=== PATIENT | female | born 2000 | race Caucasian/White ===

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

== ENCOUNTER 2019-02-12 15:15 | Outpatient (CLI) | payer OTHER | END 2019-02-12 23:59 | disposition home or self-care (01) | LOC: LAB.R 15:15 | PROVIDERS: ATTEND Physician Assistant | DX: Z20.2 Contact with and (suspected) exposure to infections with a predominantly sexual mode of transmission (principal) | CPT/HCPCS: 87491; 87591 ==

== ENCOUNTER 2019-05-26 17:35 | Outpatient (CLI) | payer OTHER | END 2019-05-26 17:36 | disposition home or self-care (01) | LOC: LAB 17:35 | PROVIDERS: ATTEND Physician Assistant | DX: Z33.1 Pregnant state, incidental (principal) | CPT/HCPCS: 36415; 84702 ==

== ENCOUNTER 2019-05-28 14:19 | Outpatient (CLI) | payer OTHER ==
--- NOTE | 2019-05-29 11:31 | Ultrasound Report ---
Reason: , ABDOMINAL CRAMPS Procedure Date: 05/28/2019 Accession Number: [id number] / [id number] Procedure: US - OB First Trimester CPT Code: FULL RESULT: EXAM: FIRST TRIMESTER OBSTETRIC ULTRASOUND (Less than 11 weeks) EXAM DATE: 05/28/2019 04:02 PM. CLINICAL HISTORY: , abdominal cramps. LMP: 04/02/2019. COMPARISONS: None. TECHNIQUE: Transabdominal and transvaginal ultrasound examination with static image documentation. CLINICAL DATES: EGA 8 weeks 0 days with JACOBO 01/07/2020 based on LMP. ASSESSMENT: Gestational Sac: Single intrauterine. Embryo: CRL (crown-rump length) 5.7 mm = 6 weeks 3 days with an JACOBO of 01/18/2020. Cardiac activity: 124 beats per minute. Yolk sac: 4.5 mm. Amniotic fluid: Not accurately assessed at this gestational age. Early placenta: Not visible at this gestational age. Other: Small anterior perigestational collection measuring 1.2 x 0.6 x 0.7 cm is noted. This is most compatible with a small perigestational hemorrhage. MATERNAL STRUCTURES: Uterus: Anteverted. Unremarkable. Cervix: Closed. Right Ovary/Adnexa: The ovary measures 3.7 x 2.1 x 2.6 cm, volume 10.7 cc. Unremarkable. Left Ovary/Adnexa: The ovary measures 2.8 x 1.3 x 1.7 cm, volume 3.3 cc. Unremarkable. Free Fluid: None. Other: None. IMPRESSION: 1. Single viable intrauterine at EGA 6 weeks 3 days with JACOBO 01/18/2020 based on crown-rump length, which is discordant with clinical dates. 2. Assigned dating is JACOBO 01/18/2020 based on current ultrasound. 3. Small perigestational hemorrhage as above. 4. Both ovaries and adnexa are normal. RADIA
== END 2019-05-28 14:20 | disposition home or self-care (01) ==
LOC: DI 14:19
PROVIDERS: ATTEND Physician Assistant
DX: O99.89 Other specified diseases and conditions complicating pregnancy, childbirth and the puerperium (principal); R10.9 Unspecified abdominal pain; O46.91 Antepartum hemorrhage, unspecified, first trimester; Z3A.01 Less than 8 weeks gestation of pregnancy
CPT/HCPCS: 76801; 76817

== ENCOUNTER 2019-06-15 13:51 | Outpatient (CLI) | payer OTHER ==
[2019-06-15 15:08] LABS: MUDS CUTOFF CONCENTRATIONS CUTOFF CONC BELOW:
[2019-06-15 15:13] LABS: BILIRUBIN,URINE NEGATIVE (NEGATIVE); GLUCOSE, URINE (UA) NEGATIVE (NEGATIVE); KETONES,URINE (UA) NEGATIVE (NEGATIVE); LEUKOCYTE ESTERASE, URINE NEGATIVE (NEGATIVE); NITRITE,URINE NEGATIVE (NEGATIVE); OCCULT BLOOD,URINE NEGATIVE (NEGATIVE); PROTEIN,URINE NEGATIVE (NEGATIVE); UROBILINOGEN,URINE 0.2 (NORMAL) E.U./dL (NORMAL)
[2019-06-15 15:20] LABS: CLARITY,URINE CLEAR (CLEAR)
[2019-06-15 15:30] LABS: AMPHETAMINE SCREEN,URINE NEGATIVE (NEGATIVE); BENZODIAZEPINES SCREEN, URINE NEGATIVE (NEGATIVE); COCAINE SCREEN URINE NEGATIVE (NEGATIVE); METHADONE SCREEN, URINE NEGATIVE (NEGATIVE); METHAMPHETAMINES SCREEN, URINE NEGATIVE (NEGATIVE); OPIATE SCREEN, URINE NEGATIVE (NEGATIVE); OXYCODONE SCREEN, URINE NEGATIVE (NEGATIVE); PROPOXYPHENE SCREEN, URINE NEGATIVE (NEGATIVE); TRICYCLIC ANTIDEPRESSANT,URINE NEGATIVE (NEGATIVE)
[2019-06-15 15:45] LABS: RBC,URINE None Seen /HPF (0-5)
[2019-06-15 15:46] LABS: BACTERIA,URINE None Seen /HPF (None Seen); SQUAMOUS EPITHELIAL CELL,UR FEW Squamous (<= Few)
== END 2019-06-15 23:59 | disposition home or self-care (01) ==
LOC: LAB.R 13:51
PROVIDERS: ATTEND Nurse Practitioner Obstetrics & Gynecology
DX: Z36.89 Encounter for other specified antenatal screening (principal)
CPT/HCPCS: 80306; 81001; 87086

== ENCOUNTER 2019-06-15 14:01 | Outpatient (CLI) | payer OTHER ==
[2019-06-15 14:41] LABS: BASOPHILS # (AUTO) 0.1 10^3/uL (0.0-0.1); BASOPHILS % (AUTO) 0.3 %; EOSINOPHILS # (AUTO) 0.1 10^3/uL (0.0-0.7); EOSINOPHILS % (AUTO) 0.4 %; HGB - HEMOGLOBIN 11.2 g/dL (12.0-16.0); LYMPHOCYTES # (AUTO) 1.9 10^3/uL (1.5-3.5); LYMPHOCYTES % (AUTO) 12.8 %; MEAN CORPUSCULAR HEMOGLOBIN 21.8 pg (27.0-31.0); MEAN CORPUSCULAR VOLUME 68.1 fL (81.0-99.0); MONOCYTES # (AUTO) 0.8 10^3/uL (0.0-1.0); MONOCYTES % (AUTO) 5.5 %; NEUTROPHILS # (AUTO) 11.9 10^3/uL (1.5-6.6); NEUTROPHILS % (AUTO) 80.5 %; PLT - PLATELET COUNT 333 10^3/uL (130-450); RED BLOOD COUNT 5.14 10^6/uL (4.20-5.40); RED CELL DISTRIBUTION WIDTH 18.3 % (12.0-15.0); WHITE BLOOD COUNT 14.8 x10^3/uL (4.8-10.8)
[2019-06-15 15:33] LABS: THYROID STIMULATING HORMONE 5.9 uIU/mL (0.34-5.60)
[2019-06-16 11:26] LABS: HEPATITIS B SURFACE ANTIGEN NON-REACTIVE (NON-REACTIVE)
[2019-06-16 13:16] LABS: HIV AG/AB 4TH GEN NON-REACTIVE (NON-REACTIVE)
[2019-06-16 13:42] LABS: HEPATITIS C ANTIBODY NON-REACTIVE (NON-REACTIVE)
== END 2019-06-15 14:02 | disposition home or self-care (01) ==
LOC: LAB 14:01
PROVIDERS: ATTEND Nurse Practitioner Obstetrics & Gynecology
DX: Z36.89 Encounter for other specified antenatal screening (principal); E03.9 Hypothyroidism, unspecified
CPT/HCPCS: 36415; 80306; 81001; 81599; 84443; 85025; 86592; 86762; 86803; 86850; 86900; 86901; 87340; 87389

== ENCOUNTER 2019-07-23 13:51 | Outpatient (CLI) | payer OTHER ==
[2019-07-23 14:37] LABS: T4 (THYROXINE) 8.89 ug/dL (6.09-12.23)
[2019-07-23 14:41] LABS: THYROID STIMULATING HORMONE 5.43 uIU/mL (0.34-5.60)
== END 2019-07-23 13:52 | disposition home or self-care (01) ==
LOC: LAB 13:51
PROVIDERS: ATTEND Obstetrics & Gynecology
DX: O99.280 Endocrine, nutritional and metabolic diseases complicating pregnancy, unspecified trimester (principal)
CPT/HCPCS: 36415; 84436; 84443

== ENCOUNTER 2019-08-03 09:19 | Emergency (ER) | payer OTHER ==
--- NOTE | 2019-08-03 10:12 | ED Physician Documentation ---
History of Present Illness - Stated complaint Stated Complaint: ABD PX/ 16 WKS - Chief complaint Chief Complaint: Abd Pain - Additonal information Additional information: This is a 19 year old female who is currently 16 weeks who presents with abdominal discomfort extending across lower abdomen since yesterday. The pain is crampy and somewhat intermittent and migratory. She denies bleeding, vaginal discharge, concern for sexual transmitted infection. No fever or vomiting. She had mild nausea. She Had a confirmed intrauterine on 2 separate OB ultrasounds. She reportedly had a possible subchorionic hemorrhage seen on the first US. Review of Systems Constitutional: denies: Fever Cardiac: denies: Chest pain / pressure Respiratory: denies: Dyspnea GI: reports: Abdominal Pain, Nausea : denies: Dysuria Skin: denies: Rash PD PAST MEDICAL HISTORY - Past Medical History Endocrine/Autoimmune: HyPOthyroidism - Past Surgical History Past Surgical History: No - Present Medications Home Medications: Ambulatory Orders Medication Instructions Recorded Confirmed Ibuprofen 11/17/18 Metoclopramide [Reglan] 10 mg PO Q6H PRN #20 tablet 08/04/19 - Allergies Allergies/Adverse Reactions: Allergies Allergy/AdvReac Type Severity Reaction Status Date / Time No Known Drug Allergies Allergy Verified 08/04/19 16:42 - Social History Does the pt smoke?: No Smoking Status: Never smoker Does the pt drink ETOH?: No Does the pt have substance abuse?: No - Immunizations Immunizations are current?: Yes - POLST Patient has POLST: No PD ED PE NORMAL - Vitals Vital signs reviewed: Yes - General General: Alert and oriented X 3, No acute distress - HEENT HEENT: PERRL - Neck Neck: Supple, no meningeal sign - Cardiac Cardiac: RRR, No murmur - Respiratory Respiratory: Clear bilaterally - Abdomen Abdomen: Other (Soft, very mild suprapubic tenderness, no RLQ or RUQ focal tenderness. No guarding.) - Derm Derm: Warm and dry - Extremities Extremities: No deformity - Neuro Neuro: Alert and oriented X 3 - Psych Psych: Normal mood, Normal affect Results - Vitals Vitals: Oxygen O2 Source Room air - Labs Labs: Laboratory Tests 08/03/19 08/03/19 08/03/19 10:45 10:50 10:50 WBC 11.6 H RBC 4.61 Hgb 9.9 L Hct 32.0 L MCV 69.4 L MCH 21.5 L MCHC 30.9 L RDW 17.5 H Plt Count 286 MPV 11.0 H Neut # (Auto) 9.5 H Lymph # (Auto) 1.4 L [place] # (Auto) 0.7 Eos # (Auto) 0.1 Baso # (Auto) 0.0 Absolute Nucleated RBC 0.00 Nucleated RBC % 0.0 Sodium 137 Potassium 3.5 Chloride 106 Carbon Dioxide 22 Anion Gap 9.0 BUN 5 L Creatinine 0.7 Estimated GFR (MDRD) 107 Glucose 104 H Calcium 9.0 Total Bilirubin 0.2 AST 14 ALT 10 Alkaline Phosphatase 61 Total Protein 6.8 Albumin 3.5 Globulin 3.3 Albumin/Globulin Ratio 1.1 Lipase 34 Urine Color YELLOW Urine Clarity CLEAR Urine pH 7.0 Ur Specific [place] 1.015 Urine Protein NEGATIVE Urine Glucose (UA) NEGATIVE Urine Ketones NEGATIVE Urine Occult Blood NEGATIVE Urine Nitrite NEGATIVE Urine Bilirubin NEGATIVE Urine Urobilinogen 0.2 (NORMAL) Ur Leukocyte Esterase NEGATIVE Ur Microscopic Review NOT INDICATED Urine Culture Comments NOT INDICATED - Rads (name of study) POC bedside US Radiology: Other ( movement present, 1 IUP present, HR 142) PD MEDICAL DECISION MAKING - ED course Complexity details: considered differential (UTI, threatened miscarraige, appendicitis, biliary colic, STI) ED course: Pt has a benign abdominal exam. Labs show no signs of UTI, slight leukocytosis w hich is non-specific, particularly in . Patient does have an anemia which is near her baseline. Bedside US shows a viable IUP. On repeat examination patient continues to have a benign examination without focal RLQ or RUQ tenderness. She has no vaginal bleeding or symptoms to suggest STI, or miscarriage. I discussed that I do not see an obvious cause of her cramping, but she needs to follow up very closely with her OB and return to the ED for a recheck in 24 hours if she has continued pain or particularly if she had RLQ pain or vomiting, as early appendicitis is possible. I also discussed symptoms that would necessitate immediate return to the ED. Patient agrees and was discharged home. Departure - Departure Disposition: Home, Self Care Clinical Impression: Abdominal pain Qualifiers: Abdominal location: generalized Qualified Code(s): R10.84 - Generalized abdominal pain Condition: Good Instructions: ED Abdominal Pain Unkn Cause Follow-Up: Rosalie Sharp PA [Primary Care Provider] - Within 1 week Comments: You were seen today for abdominal pain. You have an anemia, please follow-up with your OB and your primary care provider on this. Your urine did not show signs of an infection. 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 If you develop worsening abdominal pain, pain that localizes to the right lower quadrant, vomiting, fever, or any other concerning symptoms return to the emergency department. Discharge Date/Time: 08/03/19 11:59
[2019-08-03 10:57] LABS: BASOPHILS % (AUTO) 0.3 %; EOSINOPHILS # (AUTO) 0.1 10^3/uL (0.0-0.7); EOSINOPHILS % (AUTO) 0.4 %; HGB - HEMOGLOBIN 9.9 g/dL (12.0-16.0); LYMPHOCYTES # (AUTO) 1.4 10^3/uL (1.5-3.5); LYMPHOCYTES % (AUTO) 12.1 %; MEAN CORPUSCULAR HEMOGLOBIN 21.5 pg (27.0-31.0); MEAN CORPUSCULAR HGB CONC 30.9 g/dL (32.0-36.0); MEAN CORPUSCULAR VOLUME 69.4 fL (81.0-99.0); MONOCYTES # (AUTO) 0.7 10^3/uL (0.0-1.0); MONOCYTES % (AUTO) 5.7 %; NEUTROPHILS # (AUTO) 9.5 10^3/uL (1.5-6.6); NEUTROPHILS % (AUTO) 81.2 %; PLT - PLATELET COUNT 286 10^3/uL (130-450); RED BLOOD COUNT 4.61 10^6/uL (4.20-5.40); RED CELL DISTRIBUTION WIDTH 17.5 % (12.0-15.0); WHITE BLOOD COUNT 11.6 x10^3/uL (4.8-10.8)
[2019-08-03 10:58] LABS: BILIRUBIN,URINE NEGATIVE (NEGATIVE); CLARITY,URINE CLEAR (CLEAR); GLUCOSE, URINE (UA) NEGATIVE (NEGATIVE); KETONES,URINE (UA) NEGATIVE (NEGATIVE); LEUKOCYTE ESTERASE, URINE NEGATIVE (NEGATIVE); NITRITE,URINE NEGATIVE (NEGATIVE); OCCULT BLOOD,URINE NEGATIVE (NEGATIVE); PROTEIN,URINE NEGATIVE (NEGATIVE); UROBILINOGEN,URINE 0.2 (NORMAL) E.U./dL (NORMAL)
[2019-08-03 11:10] VITALS: BP 124/74
[2019-08-03 11:13] LABS: ALBUMIN 3.5 g/dL (3.2-5.5); ALBUMIN/GLOBULIN RATIO 1.1 (1.0-2.2); BILIRUBIN,TOTAL 0.2 mg/dL (0.2-1.0); CREATININE 0.7 mg/dL (0.4-1.0); TOTAL PROTEIN 6.8 g/dL (6.7-8.2)
== END 2019-08-03 11:59 | disposition home or self-care (01) ==
LOC: ED 09:19
DX: O99.89 Other specified diseases and conditions complicating pregnancy, childbirth and the puerperium (principal); R10.84 Generalized abdominal pain; O99.012 Anemia complicating pregnancy, second trimester; D64.9 Anemia, unspecified; Z3A.16 16 weeks gestation of pregnancy
CPT/HCPCS: 36415; 80053; 81001; 81003; 83690; 85025; 87086; 99282; 99283

== ENCOUNTER 2019-08-04 16:35 | Emergency (ER) | payer OTHER, MEDICAID ==
[2019-08-04] MEDS ORDERED: MAG HYDROX/AL HYDROX/SIMETH 30 ML UDC PO STA (17:07)
[2019-08-04] MEDS ORDERED: SODIUM CHLORIDE 0.9% 1,000 ML IV ONE ×2 (17:07→18:46)
[2019-08-04] MEDS ORDERED: METOCLOPRAMIDE 10 MG/2 ML VIAL IVP STA (17:07)
[2019-08-04] MEDS ORDERED: FAMOTIDINE 20 MG/2 ML VIAL IVP STA (17:07)
[2019-08-04] MEDS ORDERED: LIDOCAINE VISCOUS 2% 15 ML UDC MM STA (17:07)
--- NOTE | 2019-08-04 17:10 | ED Physician Documentation ---
PD HPI ABD PAIN - Stated complaint Stated Complaint: 16 WKS/VOMITING - Chief complaint Chief Complaint: Abd Pain - History obtained from History obtained from: Patient - History of Present Illness Timing - onset: Yesterday (This is a G1 at 16 weeks gestation who presents with abdominal pain and vomiting. Yesterday her abdominal pain was low down but today the lower pain is gone and she has more epigastric pain. She was seen yesterday and work-up was negative. Today she has more nausea and vomiting and she is vomited about several times. There is no associated diarrhea. Last bowel movement was yesterday. No cramping or bleeding or fluid loss.) Review of Systems Constitutional: denies: Fever, Chills Respiratory: denies: Dyspnea, Cough GI: reports: Abdominal Pain, Nausea, Vomiting. denies: Constipation, Diarrhea Skin: denies: Rash, Lesions PD PAST MEDICAL HISTORY - Past Medical History Past Medical History: No Endocrine/Autoimmune: HyPOthyroidism - Past Surgical History Past Surgical History: No - Present Medications Home Medications: Ambulatory Orders Medication Instructions Recorded Confirmed Ibuprofen 11/17/18 Metoclopramide [Reglan] 10 mg PO Q6H PRN #20 tablet 08/04/19 - Allergies Allergies/Adverse Reactions: Allergies Allergy/AdvReac Type Severity Reaction Status Date / Time No Known Drug Allergies Allergy Verified 08/04/19 16:42 - Social History Does the pt smoke?: No Smoking Status: Never smoker Does the pt drink ETOH?: No Does the pt have substance abuse?: No - Immunizations Immunizations are current?: Yes - POLST Patient has POLST: No PD ED PE NORMAL - Vitals Vital signs reviewed: Yes - General General: Alert and oriented X 3, No acute distress - Abdomen Abdomen: Normal bowel sounds, Soft, Other (Gravid, minimal epigastric tenderness, no lower abdominal tenderness. Bedside ultrasound shows single live intrauterine with a heart rate of 140.) - Back Back: No CVA TTP, No spinal TTP - Neuro Neuro: Alert and oriented X 3, Normal speech Results - Vitals Vitals: Vital Signs - 24 hr 08/04/19 08/04/19 16:40 21:39 Temperature 37.2 C Heart Rate 84 82 Respiratory 15 16 Rate Blood Pressure 134/75 H 124/82 H O2 Saturation 100 99 Oxygen O2 Source Room air - Labs Labs: Laboratory Tests 08/04/19 08/04/19 08/04/19 17:10 17:15 17:15 WBC 16.8 H RBC 4.78 Hgb 10.2 L Hct 32.6 L MCV 68.2 L MCH 21.3 L MCHC 31.3 L RDW 17.5 H Plt Count 281 MPV 10.8 Neut # (Auto) 14.7 H Lymph # (Auto) 1.5 [place] # (Auto) 0.5 Eos # (Auto) 0.0 Baso # (Auto) 0.0 Absolute Nucleated RBC 0.00 Nucleated RBC % 0.0 Sodium 138 Potassium 3.6 Chloride 109 Carbon Dioxide 21 Anion Gap 8.0 BUN 7 Creatinine 0.5 Estimated GFR (MDRD) 157 Glucose 133 H Calcium 9.2 Total Bilirubin 0.4 AST 18 ALT 11 Alkaline Phosphatase 66 Total Protein 7.5 Albumin 3.6 Globulin 3.9 Albumin/Globulin Ratio 0.9 L Lipase 35 Urine Color YELLOW Urine Clarity CLEAR Urine pH 7.0 Ur Specific [place] 1.015 Urine Protein NEGATIVE Urine Glucose (UA) NEGATIVE Urine Ketones 15 H Urine Occult Blood NEGATIVE Urine Nitrite NEGATIVE Urine Bilirubin NEGATIVE Urine Urobilinogen 0.2 (NORMAL) Ur Leukocyte Esterase NEGATIVE Ur Microscopic Review NOT INDICATED Urine Culture Comments NOT INDICATED - Rads (name of study) abd sono Radiology: EMP read contemporaneously (appenidx not visualized) Ct A/P Radiology: EMP read contemporaneously (no sign of appendix) PD MEDICAL DECISION MAKING - ED course ED course: 19-year-old G1 at 16 weeks presents with upper abdominal pain and vomiting. She felt much better after nausea medicines, IV fluid, and a GI cocktail. On recheck though she was more tender in the right lower quadrant. We will see if we can see her appendix on ultrasound. Her ultrasound was nondiagnostic. Subsequent to that I discussed with her and the fianc the potential options, which were as I saw them: 1 admission to the surgeon for serial exams 2 CT 3 transfer for MRI 4 antibiotics and observation for MRI tomorrow. We discussed the risk of potential CT radiation and reviewed ACOG guidelines together. After discussion they opted for the CT. CT was negative for appendicitis although the appendix was not definitely seen, however this is much more reassuring than a negative ultrasound and she was discharged with close follow-up and still appendicitis precautions. Departure - Departure Disposition: 01 Home, Self Care Clinical Impression: Vomiting Qualifiers: Vomiting type: unspecified Vomiting Intractability: non-intractable Nausea presence: with nausea Qualified Code(s): R11.2 - Nausea with vomiting, unspecified Abdominal pain Qualifiers: Abdominal location: generalized Qualified Code(s): R10.84 - Generalized abdominal pain Condition: Good Record reviewed to determine appropriate education?: Yes Instructions: ED Abdominal Pain Unkn Cause Prescriptions: Metoclopramide [Reglan] 10 mg PO Q6H PRN #20 tablet PRN Reason: nausea or headache Comments: Return for new worsening symptoms or if not better in 12 to 24 hours, anytime if you run a fever. Follow-up with your OB, next available appointment. Discharge Date/Time: 08/04/19 21:43
[2019-08-04 17:26] LABS: BASOPHILS % (AUTO) 0.2 %; EOSINOPHILS % (AUTO) 0.2 %; HGB - HEMOGLOBIN 10.2 g/dL (12.0-16.0); LYMPHOCYTES # (AUTO) 1.5 10^3/uL (1.5-3.5); MEAN CORPUSCULAR HEMOGLOBIN 21.3 pg (27.0-31.0); MEAN CORPUSCULAR HGB CONC 31.3 g/dL (32.0-36.0); MEAN CORPUSCULAR VOLUME 68.2 fL (81.0-99.0); MEAN PLATELET VOLUME 10.8 fL (7.9-10.8); MONOCYTES # (AUTO) 0.5 10^3/uL (0.0-1.0); MONOCYTES % (AUTO) 2.8 %; NEUTROPHILS # (AUTO) 14.7 10^3/uL (1.5-6.6); NEUTROPHILS % (AUTO) 87.3 %; PLT - PLATELET COUNT 281 10^3/uL (130-450); RED BLOOD COUNT 4.78 10^6/uL (4.20-5.40); RED CELL DISTRIBUTION WIDTH 17.5 % (12.0-15.0); WHITE BLOOD COUNT 16.8 x10^3/uL (4.8-10.8)
[2019-08-04 17:36] LABS: ALBUMIN 3.6 g/dL (3.2-5.5); ALBUMIN/GLOBULIN RATIO 0.9 (1.0-2.2); BILIRUBIN,TOTAL 0.4 mg/dL (0.2-1.0); CALCIUM 9.2 mg/dL (8.5-10.3); CREATININE 0.5 mg/dL (0.4-1.0); TOTAL PROTEIN 7.5 g/dL (6.7-8.2)
[2019-08-04 17:46] LABS: BILIRUBIN,URINE NEGATIVE (NEGATIVE); GLUCOSE, URINE (UA) NEGATIVE (NEGATIVE); KETONES,URINE (UA) 15 mg/dL (NEGATIVE); LEUKOCYTE ESTERASE, URINE NEGATIVE (NEGATIVE); NITRITE,URINE NEGATIVE (NEGATIVE); OCCULT BLOOD,URINE NEGATIVE (NEGATIVE); PROTEIN,URINE NEGATIVE (NEGATIVE); UROBILINOGEN,URINE 0.2 (NORMAL) E.U./dL (NORMAL)
[2019-08-04 17:48] LABS: CLARITY,URINE CLEAR (CLEAR)
--- NOTE | 2019-08-04 20:18 | Ultrasound Report ---
Reason: RLQ pain in , try to find append Procedure Date: 08/04/2019 Accession Number: [id number] / [id number] Procedure: US - Abdomen Limited CPT Code: FULL RESULT: EXAM: ABDOMEN ULTRASOUND LIMITED EXAM DATE: 08/04/2019 07:52 PM. CLINICAL HISTORY: Right lower quadrant pain in , try to find appendix. COMPARISON: None. TECHNIQUE: Real-time scanning was performed with static images obtained. FINDINGS: The appendix is not visualized. No right lower quadrant fluid collections seen. There is no lymphadenopathy. No fixed dilated bowel loops. Right ovary also not visualized. IMPRESSION: Nonvisualization of appendix. RADIA
[2019-08-04] MEDS ORDERED: IOVERSOL 320 100 ML VIAL IVP ONE ×2 (20:21→20:46)
--- NOTE | 2019-08-04 21:20 | CT Report ---
Reason: IV only, RLQ pain in , Procedure Date: 08/04/2019 Accession Number: [id number] / [id number] Procedure: CT - Abdomen/Pelvis W CPT Code: FULL RESULT: EXAM: CT ABDOMEN AND PELVIS EXAM DATE: 08/04/2019 08:43 PM. CLINICAL HISTORY: IV only, RLQ pain in . COMPARISONS: None. TECHNIQUE: Routine helical CT imaging was performed through the abdomen and pelvis. IV contrast: OPTI 320 90ML. Enteric contrast: No. Reconstructions: Coronal and sagittal. In accordance with CT protocol optimization, one or more of the following dose reduction techniques were utilized for this exam: automated exposure control, adjustment of mA and/or KV based on patient size, or use of iterative reconstructive technique. FINDINGS: Lung Bases: Unremarkable. Liver: Normal. No masses. Gallbladder/Bile Ducts: Unremarkable. Spleen: Normal. Pancreas: Normal. Adrenal Glands: Normal. Kidneys: Normal. No masses or hydronephrosis. Peritoneal Cavity/Bowel: Normal. No free fluid, free air or adenopathy. No masses or acute inflammatory process. Appendix is not definitively visualized in right lower quadrant, likely compressed due to gravid uterus. However there is no inflammation in the right lower quadrant. No free fluid. No acute abdominal pathology. Pelvic Organs: Normal. The bladder and visualized pelvic organs are within normal limits. Vasculature: No aneurysms or other significant abnormality. Bones: No significant abnormality. Other: Gravid uterus seen with transversely oriented fetus. IMPRESSION: Appendix is not definitively visualized in right lower quadrant, likely compressed due to gravid uterus. However no inflammation in the right lower quadrant. No free fluid. No acute abdominal pathology. RADIA
[2019-08-04] MEDS ORDERED: ONDANSETRON ODT 4 MG Prepack 2 TL STA (21:24)
[2019-08-04 21:40] VITALS: BP 124/82
== END 2019-08-04 21:43 | disposition home or self-care (01) ==
LOC: ED 16:35
DX: O21.0 Mild hyperemesis gravidarum (principal); O99.89 Other specified diseases and conditions complicating pregnancy, childbirth and the puerperium; R10.84 Generalized abdominal pain; Z3A.16 16 weeks gestation of pregnancy
CPT/HCPCS: 36415; 74177; 76705; 80053; 81003; 83690; 85025; 96361; 96374; 99283; 99284; A9270; J2765; Q9967; 81001; 87086

== ENCOUNTER 2019-08-09 16:19 | Emergency (ER) | payer MEDICAID ==
[2019-08-09] MEDS ORDERED: METOCLOPRAMIDE 10 MG/2 ML VIAL IVP STA (17:35)
--- NOTE | 2019-08-09 17:36 | ED Physician Documentation ---
PD HPI ABD PAIN - Stated complaint Stated Complaint: VOMITING/16 WEEKS - Chief complaint Chief Complaint: Abd Pain - History obtained from History obtained from: Patient (G1 at 17 weeks. I saw her last week for some belly pain. That is all better and she was doing well in the interim but today started having vomiting. No urinary complaints. No sick contacts. No recent travel.) Review of Systems Ten Systems: 10 systems reviewed and negative Constitutional: denies: Fever, Chills Cardiac: reports: Reviewed and negative Respiratory: reports: Reviewed and negative PD PAST MEDICAL HISTORY - Past Medical History Endocrine/Autoimmune: HyPOthyroidism - Past Surgical History Past Surgical History: No - Present Medications Home Medications: Ambulatory Orders Medication Instructions Recorded Confirmed Ibuprofen 11/17/18 Metoclopramide [Reglan] 10 mg PO Q6H PRN #20 tablet 08/04/19 - Allergies Allergies/Adverse Reactions: Allergies Allergy/AdvReac Type Severity Reaction Status Date / Time No Known Drug Allergies Allergy Verified 08/09/19 16:29 - Social History Does the pt smoke?: No Smoking Status: Never smoker Does the pt drink ETOH?: No Does the pt have substance abuse?: No - Immunizations Immunizations are current?: Yes - POLST Patient has POLST: No PD ED PE NORMAL - Vitals Vital signs reviewed: Yes - General General: Alert and oriented X 3, No acute distress - Cardiac Cardiac: RRR, No murmur - Respiratory Respiratory: No respiratory distress, Clear bilaterally - Abdomen Abdomen: Soft, Non tender, Other (Bedside ultrasound demonstrates single live intrauterine with a heart rate of 160.) - Back Back: No CVA TTP - Derm Derm: Normal color, Warm and dry - Extremities Extremities: No edema, No calf tenderness / cord - Neuro Neuro: Alert and oriented X 3, Normal speech Results - Vitals Vitals: Vital Signs - 24 hr 08/09/19 08/09/19 16:27 18:48 Temperature 37.1 C Heart Rate 84 72 Respiratory 20 16 Rate Blood Pressure 126/71 120/48 L O2 Saturation 100 99 Oxygen O2 Source Room air - Labs Labs: Laboratory Tests 08/09/19 08/09/19 08/09/19 17:55 17:55 17:55 WBC 22.0 H RBC 5.40 Hgb 11.8 L Hct 37.5 MCV 69.4 L MCH 21.9 L MCHC 31.5 L RDW 17.4 H Plt Count 315 MPV 10.7 Manual Slide Review Indicated Sodium 139 Potassium 4.1 Chloride 104 Carbon Dioxide 21 Anion Gap 14.0 H BUN 7 Creatinine 0.6 Estimated GFR (MDRD) 127 Glucose 94 Calcium 9.4 Total Bilirubin 0.5 AST 19 ALT 17 Alkaline Phosphatase 81 Total Protein 8.2 Albumin 4.2 Globulin 4.0 Albumin/Globulin Ratio 1.1 Lipase 46 Urine Color YELLOW Urine Clarity CLEAR Urine pH 5.0 Ur Specific [place] >=1.030 H Urine Protein TRACE Urine Glucose (UA) NEGATIVE Urine Ketones 15 H Urine Occult Blood NEGATIVE Urine Nitrite NEGATIVE Urine Bilirubin NEGATIVE Urine Urobilinogen 0.2 (NORMAL) Ur Leukocyte Esterase NEGATIVE Ur Microscopic Review NOT INDICATED Urine Culture Comments NOT INDICATED PD MEDICAL DECISION MAKING - ED course ED course: 19-year-old woman, , reassuring bedside ultrasound. Sounds like gastroenteritis. She is nontender. Has a significant white count but given the lack of pain or tenderness probably does not need anything but watchful waiting. [place] better after Reglan and fluids. Departure - Departure Disposition: 01 Home, Self Care Clinical Impression: Gastroenteritis Condition: Good Record reviewed to determine appropriate education?: Yes Instructions: ED Gastroenteritis Viral Comments: Return anytime if worse or if running a high fever. Otherwise return if you are not better in the next 12 to 24 hours.
[2019-08-09 18:05] LABS: BASOPHILS # (AUTO) 0.1 10^3/uL (0.0-0.1); BASOPHILS % (AUTO) 0.4 %; HGB - HEMOGLOBIN 11.8 g/dL (12.0-16.0); LYMPHOCYTES # (AUTO) 1.1 10^3/uL (1.5-3.5); LYMPHOCYTES % (AUTO) 4.9 %; MEAN CORPUSCULAR HEMOGLOBIN 21.9 pg (27.0-31.0); MEAN CORPUSCULAR HGB CONC 31.5 g/dL (32.0-36.0); MEAN CORPUSCULAR VOLUME 69.4 fL (81.0-99.0); MEAN PLATELET VOLUME 10.7 fL (7.9-10.8); MONOCYTES # (AUTO) 0.7 10^3/uL (0.0-1.0); MONOCYTES % (AUTO) 3.3 %; NEUTROPHILS # (AUTO) 19.9 10^3/uL (1.5-6.6); NEUTROPHILS % (AUTO) 90.6 %; PLT - PLATELET COUNT 315 10^3/uL (130-450); RED CELL DISTRIBUTION WIDTH 17.4 % (12.0-15.0)
[2019-08-09 18:12] LABS: BILIRUBIN,URINE NEGATIVE (NEGATIVE); GLUCOSE, URINE (UA) NEGATIVE (NEGATIVE); KETONES,URINE (UA) 15 mg/dL (NEGATIVE); LEUKOCYTE ESTERASE, URINE NEGATIVE (NEGATIVE); NITRITE,URINE NEGATIVE (NEGATIVE); OCCULT BLOOD,URINE NEGATIVE (NEGATIVE); PROTEIN,URINE TRACE mg/dL (NEGATIVE); UROBILINOGEN,URINE 0.2 (NORMAL) E.U./dL (NORMAL)
[2019-08-09 18:14] LABS: CLARITY,URINE CLEAR (CLEAR)
[2019-08-09 18:18] LABS: ALBUMIN 4.2 g/dL (3.2-5.5); ALBUMIN/GLOBULIN RATIO 1.1 (1.0-2.2); BILIRUBIN,TOTAL 0.5 mg/dL (0.2-1.0); CALCIUM 9.4 mg/dL (8.5-10.3); CREATININE 0.6 mg/dL (0.4-1.0); TOTAL PROTEIN 8.2 g/dL (6.7-8.2)
[2019-08-09] MEDS ORDERED: SODIUM CHLORIDE 0.9% 1,000 ML IV ONE (18:19)
[2019-08-09 18:51] VITALS: BP 120/48
[2019-08-09 19:19] LABS: PLATELET ESTIMATE, MANUAL NORMAL (130-450,000) (NORMAL); PLATELET MORPHOLOGY NORMAL APPEARANCE (NORMAL)
== END 2019-08-09 19:27 | disposition home or self-care (01) ==
LOC: ED 16:19
DX: O99.89 Other specified diseases and conditions complicating pregnancy, childbirth and the puerperium (principal); K52.9 Noninfective gastroenteritis and colitis, unspecified
CPT/HCPCS: 36415; 80053; 81003; 83690; 85025; 96361; 96374; 99283; 99284; J2765; 81001; 87086

== ENCOUNTER 2019-08-26 12:51 | Outpatient (CLI) | payer MEDICAID, OTHER ==
--- NOTE | 2019-08-26 16:33 | Ultrasound Report ---
Reason: SCREENING Procedure Date: 08/26/2019 Accession Number: [id number] / [id number] Procedure: US - OB Detailed Eval CPT Code: Final Report FULL RESULT: EXAM: COMPLETE OBSTETRICAL ULTRASOUND EXAM DATE: 08/26/2019 03:10 PM. CLINICAL HISTORY: anatomic survey. COMPARISON: None. TECHNIQUE: Real-time sonographic evaluation of the fetus performed by the ceramics test engineer. Multiple risk control representative static images were saved for review. Additional transvaginal imaging to more accurately evaluate cervical length/placental position/etc. DATING: Established EGA 20 weeks 6 days with JACOBO 01/07/2020 based on LMP and physician stated dating. EGA 19 weeks 2 days with JACOBO 01/18/2020 based on ultrasound 05/28/2019. EGA 19 weeks 6 days with JACOBO 01/14/2020 based on the current ultrasound. GENERAL EVALUATION Vela . Cardiac activity: 156 bpm. movement: Visualized. Presentation: Variable Placenta: Anterior position. Possible low-lying Umbilical cord: 3 vessel cord. Central placental cord origin. Amniotic fluid: 16.7 MVP 5.2 cm. BIOMETRY Bi-Parietal Diameter (BPD): 4.6 cm, 20 weeks 1 day Head Circumference (HC): 17.01 cm, 19 weeks 4 days Abdominal Circumference (AC): 15.74 cm, 20 weeks 6 days Femur Length (FL): 3.35 cm, 20 weeks 3 days Estimated Weight: 363 g, 30th percentile for 20 weeks 6 days. ANATOMY The intracranial structures, profile, face/nose/lips, spine, stomach, abdominal wall and cord insertion, diaphragm, kidneys, bladder, and extremities were visualized and demonstrate no abnormality. Anatomy not well seen includes nasal bone, four-chamber heart, outflow tracts, open hands. MATERNAL STRUCTURES Uterus: Unremarkable. Cervix: Long and closed. Transabdominal length 6.3 cm. Right ovary/adnexa: Unremarkable. Left ovary/adnexa: Unremarkable. Free fluid: None. IMPRESSION: 1. Vela live intrauterine with gestational age 20 weeks 6 days based on LMP and assigned dating. Dating by the first trimester ultrasound on 05/28/2019 would be 19 weeks 2 days. 2. Estimated weight is within expected limits for assigned dating. 3. anatomy not well seen includes nasal bone, four-chamber heart, outflow tracts and open hands. Follow-up in 2-3 weeks. 4. Anterior placenta possibly low lying. This can be followed up at the same time as the anatomy to confirm. [facility]
== END 2019-08-26 12:52 | disposition home or self-care (01) ==
LOC: DI 12:51
PROVIDERS: ATTEND Obstetrics & Gynecology
DX: Z36.89 Encounter for other specified antenatal screening (principal)
CPT/HCPCS: 76811